=== PATIENT | female | born 1985 | race Caucasian/White ===

== ENCOUNTER 2017-09-22 20:33 | Outpatient (CLI) | payer OTHER ==
[~2017-09-22 20:33] MED LIST: AMOX1TAB5 PO; DERMOPLAST TP; DOCUSATE SODIU100 MG PO; NAPR500T14 PO; PRENATE ADVANCE PO
== END 2017-09-23 10:24 | disposition home or self-care (01) ==
LOC: OBS/DEL 20:33
DX: O26.893 Other specified pregnancy related conditions, third trimester (principal); O23.43 Unspecified infection of urinary tract in pregnancy, third trimester; O60.03 Preterm labor without delivery, third trimester; Z34.03 Encounter for supervision of normal first pregnancy, third trimester; Z04.1 Encounter for examination and observation following transport accident; O99.013 Anemia complicating pregnancy, third trimester; D64.89 Other specified anemias; V89.2XXA Person injured in unspecified motor-vehicle accident, traffic, initial encounter; Y93.89 Activity, other specified; Y92.488 Other paved roadways as the place of occurrence of the external cause; Y99.8 Other external cause status

== ENCOUNTER 2017-11-06 06:28 | Inpatient (IN) | payer OTHER ==
[~2017-11-06] VITALS: Ht 167.6 cm; Wt 72.1 kg
[2017-11-06] MEDS ORDERED: PRENATAL 19 TA1 EAC1 PO (07:18)
[2017-11-06] MEDS ORDERED: MAXFE CAPLET1 EACH PO (07:20)
[2017-11-08] MEDS ORDERED: DERMOPLAST TP (09:39)
[2017-11-08] MEDS ORDERED: DOCUSATE SODIU100 MG PO (09:40)
[2017-11-08] MEDS ORDERED: PREPLUS CA-FE1 EACH PO (09:40)
== END 2017-11-08 12:48 | disposition home or self-care (01) | DRG 775 ==
LOC: LDR 06:28 → OB/GYN 16:52
PROC: 0KQM0ZZ Repair Perineum Muscle, Open Approach (ICD-10-PCS; principal; 2017-11-06)
PROC: 0UQMXZZ Repair Vulva, External Approach (ICD-10-PCS; 2017-11-06)
PROC: 10E0XZZ Delivery of Products of Conception, External Approach (ICD-10-PCS; 2017-11-06)
PROC: 3E033VJ Introduction of Other Hormone into Peripheral Vein, Percutaneous Approach (ICD-10-PCS; 2017-11-06)
PROC: 4A1HXCZ Monitoring of Products of Conception, Cardiac Rate, External Approach (ICD-10-PCS; 2017-11-06)
DX: O70.1 Second degree perineal laceration during delivery (principal); O71.82 Other specified trauma to perineum and vulva; Z37.0 Single live birth; O99.113 Other diseases of the blood and blood-forming organs and certain disorders involving the immune mechanism complicating pregnancy, third trimester; D69.49 Other primary thrombocytopenia; O24.410 Gestational diabetes mellitus in pregnancy, diet controlled; Z3A.40 40 weeks gestation of pregnancy